=== PATIENT | male | born 1955 | race Caucasian/White ===

== ENCOUNTER → 2017-05-23 | Day surgery (SDC) | payer OTHER ==
[~2017-05-23] VITALS: Ht 170.2 cm; Wt 84.8 kg
[~2017-05-23] MED LIST: COLACE100 MG PO; CYMBALTA60 MG PO; DILAUDID2 MG PO; GOOD SENSE ASP325 MG PO; MIRALAX17 GM PO; MS CONTIN15 M1 PO; ZOFRAN ODT4 MG SL
--- NOTE | 2017-05-23 12:33 | Operative Report ---
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 The risks, benefits, and alternatives to surgery were discussed at length with the patient. Informed consent was obtained. The patient was brought to the operating room where the right eye was prepped and draped in the normal sterile fashion. A peribulbar block was performed without complication. A speculum was placed on the right eye with good exposure. A conjunctival peritomy was made using Khurram scissors and 0.12 forceps. Underlying Tenon's was excised to bare sclera. Hemostasis was achieved using eraser cautery. A scleral tunnel of approximately 4.25 mm in length was made using a crescent blade. Paracenteses were made using stab incision bleed. Cohesive viscoelastic was used to fill the anterior chamber. A continuous curvilinear capsulorrhexis was made using a cystotome needle followed by Utrata forceps. There was no extension of the rhexis. Hydrodissection was performed using balanced salt solution. The cataract was removed using a stop and chop technique. Residual cortex was removed using coaxial irrigation and aspiration. The capsule was polished using irrigation and aspiration and the posterior capsule was cleaned using a balanced salt solution jet. There was no residual lens material inside the eye. The capsular bag was reformed using viscoelastic. An intraocular lens MA60AC of power 21.0 was verified and confirmed. It was loaded into an injector and injected into the eye. The lens was placed entirely within the capsular bag. A central Descemet's membrane was scored and removed using reverse Sinskey hook. The posterior stroma was scraped and roughened. An inferior peripheral iridotomy was made using reverse Sinskey hook and cyclodialysis spatula. A temporary suture was placed in the main incision using 10-0 nylon suture. Attention was turned to the processed donor cornea. A donor graft of 8.5 mm vacuum punch. This was placed under Optisol. Attention was turned back to the patient were the suture was loosened and the viscoelastic was removed using coaxial irrigation and aspiration. Using a 60-40 taco fold insertion technique the graft was folded and inserted into the anterior chamber using forceps. The main wound was sutured and found to be watertight. The anterior chamber was reformed using balanced salt solution which also allowed the graft on full in its proper orientation. The graft was floated using a small air bubble and centered at which point a complete air fill was achieved in the anterior chamber. Residual interface fluid was massaged. The graft was allowed to remain in place for 10 minutes at superphysiologic pressure. After 10 minutes the eye was brought to physiologic pressure and left with an approximately 90% air-filled. Some conjunctival injections of cefuroxime and dexamethasone were placed. Dilating drops were placed. Speculum was removed. Maxitrol ointment was placed on the eye followed by patch and shield. The patient was brought to the recovery area with a remain faceup additional hour before being discharged. Instructions were given to the patient to follow-up the next day for routine postoperative care.
== END ==
LOC: STS 03:36
DX: T86.841 Corneal transplant failure (principal); H18.231 Secondary corneal edema, right eye; H25.89 Other age-related cataract
CPT/HCPCS: 87070; 87075; J1100; J2001; J2250; V2632; V2785